=== PATIENT | male | born 1985 | race Caucasian/White ===

== ENCOUNTER 2024-03-12 11:04 | Emergency (ER) | payer BC ==
[2024-03-12 11:48] LABS: BASO # 0.02 K/mm3 (0.02-0.10); EOS # 0.22 K/mm3 (0.04-0.40); EOS % 1.9 % (0.0-4.0); HEMATOCRIT 47.2 % (42.0-52.0); LYMPH# 1.84 K/mm3 (1.50-4.00); MEAN CELL VOLUME 87 fl (78-100); MEAN CORPUSCULAR HEMOGLOBIN 30 pg (27-31); MEAN CORPUSCULAR HGB CONC 34 g/dL (33-37); MEAN PLATELET VOLUME 9.3 fl (7.4-10.4); MONO # 1.01 K/mm3 (0.20-0.80); NEU # 8.53 K/mm3 (1.40-6.50); PLATELET COUNT 255 K/mm3 (130-400); RED BLOOD COUNT 5.41 M/mm3 (4.20-5.60); RED CELL DISTRIBUTION WIDTH 12.6 % (11.5-14.5); WHITE BLOOD COUNT 11.6 K/mm3 (4.8-10.8)
[2024-03-12 11:56] LABS: ALBUMIN 4.2 g/dL (3.5-5.0)
[2024-03-12 11:58] LABS: CALCIUM 9.6 mg/dL (8.3-10.5)
[2024-03-12 11:59] LABS: TOTAL PROTEIN 7.1 g/dL (6.4-8.3)
[2024-03-12 12:01] LABS: TOTAL BILIRUBIN 0.2 mg/dL (0.2-1.2)
[2024-03-12 14:22] LABS: URINE APPEARANCE CLOUDY (CLEAR); URINE BILIRUBIN 1+ (NEGATIVE); URINE BLOOD 3+ (NEGATIVE); URINE COLOR AMBER (YELLOW); URINE GLUCOSE NEGATIVE (NEGATIVE); URINE KETONE NEGATIVE (NEGATIVE); URINE NITRATE NEGATIVE (NEGATIVE); URINE PROTEIN(semi-quant) 2+ (NEGATIVE)
[2024-03-12 14:23] LABS: URINE LEUKOCYTE ESTERASE NEGATIVE (NEGATIVE)
[2024-03-12] MEDS ORDERED: cefTRIAXone 1 G in Water For Injection,Sterile 10 ML IV ONE (16:48)
[2024-03-12] MEDS ORDERED: Ondansetron 4 MG/2 ML VIAL IV ONE (16:48)
[2024-03-12] MEDS ORDERED: Ketorolac 30 MG/ML VIAL IV ONE (16:48)
[2024-03-12] MEDS ORDERED: NS 1,000 ML IV ONE (16:48)
[2024-03-12] MEDS ORDERED: Home HYDROcodone/Acetaminophen 5/325 MG #4 TABS/PACK PO ONE (16:48)
== END 2024-03-12 17:25 | disposition home or self-care (01) ==
LOC: ED 11:04
PROVIDERS: Physician Assistant
DX: N13.2 Hydronephrosis with renal and ureteral calculous obstruction (principal)
CPT/HCPCS: J0696; J1885; J2405; J7030